=== PATIENT | male | born 2000 | race Caucasian/White ===

== ENCOUNTER 2020-10-01 19:29 | Emergency (ER) | payer OTHER ==
[2020-10-01] MEDS ORDERED: AUGMENTIN 875-1 EACH PO (19:43)
[2020-10-01] MEDS ORDERED: NAPROSYN500 MG PO (19:43)
== END 2020-10-01 19:55 | disposition home or self-care (01) ==
LOC: ER1 19:29
DX: K08.89 Other specified disorders of teeth and supporting structures (principal); F17.220 Nicotine dependence, chewing tobacco, uncomplicated
CPT/HCPCS: 99282